=== PATIENT | female | born 2000 | race Hispanic/Latino ===

== ENCOUNTER 2021-07-20 12:04 | Observation (INO) | payer OTHER ==
[2021-07-20] MEDS ORDERED: hydrALAZINE 20 MG/ML VIAL SLOW IVP PRN (13:38)
[2021-07-20] MEDS ORDERED: Lactated Ringer's 1,000 ML IV SCH ×3 (13:45→20:15)
[2021-07-20] MEDS ORDERED: Acetaminophen 500 MG TAB PO SCH (14:00)
[2021-07-20 14:09] VITALS: BMI 31.2
[2021-07-20 14:30] LABS: Amphetamine Not Detected (NotDetected); Barbiturates Screen Not Detected (NotDetected); Benzodiazepine Screen Not Detected (NotDetected); Cocaine Metabolite Screen Not Detected (NotDetected); Methadone Not Detected (NotDetected); Methamphetamine Not Detected (NotDetected); Opiate Screen Not Detected (NotDetected); Oxycodone Screen Not Detected (NotDetected); Phencyclidine (PCP) Not Detected (NotDetected); THC/Cannabinoid Screen Not Detected (NotDetected); Tricyclic Screen Not Detected (NotDetected)
[2021-07-20 14:31] LABS: Bacteria/HPF Rare-Few HPF (None Seen); RBC/HPF 0-3 HPF (0-3); Squamous Epithelial 0-3 HPF (0-3); WBC/HPF 0-3 HPF (0-3)
[2021-07-20] MEDS ORDERED: Acetaminophen 500 MG TAB PO PRN (16:10)
[2021-07-20] MEDS ORDERED: Ondansetron PF 4 MG/2 ML Vial IVP PRN (16:10)
[2021-07-20] MEDS ORDERED: Promethazine HCl 25 MG/ML VIAL IM PRN (16:10)
[2021-07-20 17:09] LABS: HIV (1/2) Antibody/Antigen Non-Reactive (NonReactive); HIV 1/2 INDEX 0.11 S/CO (<1.00); Hep B Surf Ag Non-Reactive S/CO (NonReactive); Syphilis Antibody Nonreactive (Nonreactive); Syphilis Antibody Index 0.03 S/CO (<1.00 Non-Reactive)
[2021-07-20 17:16] LABS: HBSAg Index 0.19 S/CO (0-0.99)
[2021-07-20 17:29] LABS: Bilirubin Neg (Negative); Blood, Urine Negative (Negative); Clarity Clear (Clear); Glucose, Urine (Dipstick) Normal (Negative); Ketone, Urine 150 mg/dL (Negative); Leukocyte Negative (Negative); Nitrite Negative (Negative); Protein, Urine (Dipstick) 15 mg/dl (Neg-Trace); Urobilinogen Normal mg/dL (Less than 2)
[2021-07-20] MEDS: HumaLOG 300 UNITS/3 ML VIAL SC SCH (18:00)
[2021-07-20] MEDS: Acetaminophen 325 MG TAB PO PRN (19:46)
[2021-07-20] MEDS ORDERED: Lantus 1000 UNITS/10 ML VIAL SC SCH (21:00)
[2021-07-20] MEDS: Acyclovir 400 mg Tablet PO SCH (21:33)
[2021-07-20 22:28] LABS: SARS-CoV-2 NAA Rapid Test Not Detected (NotDetected)
[2021-07-20] MEDS ORDERED: Dextrose 50% Abboject 50 ML SYRINGE SLOW IVP PRN (22:42)
[2021-07-20] MEDS ORDERED: Dextrose 5% in Water 1,000 ML IV PRN (22:42)
[2021-07-21 01:47] VITALS: TEMP 100.3
[2021-07-21] MEDS: Acetaminophen 325 MG TAB PO PRN ×2 (01:47→08:24)
[2021-07-21] MEDS: Cepastat Lozenges 1 LOZ PO PRN ×2 (06:47→08:24)
[2021-07-21] MEDS: HumaLOG 300 UNITS/3 ML VIAL SC SCH (08:15)
[2021-07-21] MEDS: Acyclovir 400 mg Tablet PO SCH (08:26)
[2021-07-21] MEDS ORDERED: Prenatal Vitamin 1 TAB PO SCH (09:00)
[2021-07-21] MEDS ORDERED: Lantus 1000 UNITS/10 ML VIAL SC SCH (09:00)
[2021-07-21] MEDS ORDERED: Oseltamivir 75 MG CAP PO SCH (09:00)
[2021-07-21 12:32] LABS: Hemoglobin A1c 5.4 % (4.0-6.0)
[2021-07-24 05:32] LABS: Chlamydia by PCR Not Detected (NotDetected); GC by PCR Not Detected (NotDetected)
== END 2021-07-21 11:02 | disposition home health service (06) ==
LOC: CSHLD/OP 12:04 → INTOOBSV 16:10 → CSHLD 16:10 → UNDOADMIN 07-21 06:36 → UNDODISIN 07-21 11:02
PROVIDERS: ADMIT Obstetrics & Gynecology; ATTEND Obstetrics & Gynecology
DX: O36.8130 Decreased fetal movements, third trimester, not applicable or unspecified (principal); O36.8330 Maternal care for abnormalities of the fetal heart rate or rhythm, third trimester, not applicable or unspecified; O99.513 Diseases of the respiratory system complicating pregnancy, third trimester; J10.1 Influenza due to other identified influenza virus with other respiratory manifestations; O24.013 Pre-existing type 1 diabetes mellitus, in pregnancy, third trimester; O99.891 Other specified diseases and conditions complicating pregnancy; R00.0 Tachycardia, unspecified; O99.283 Endocrine, nutritional and metabolic diseases complicating pregnancy, third trimester; E86.0 Dehydration; O99.820 Streptococcus B carrier state complicating pregnancy; O98.513 Other viral diseases complicating pregnancy, third trimester; B00.9 Herpesviral infection, unspecified; Z3A.32 32 weeks gestation of pregnancy; Z79.899 Other long term (current) drug therapy; Z88.0 Allergy status to penicillin; Z20.822 Contact with and (suspected) exposure to COVID-19
CPT/HCPCS: 0240U; 36415; 36416; 76815; 76819; 80306; 81003; 81015; 83036; 86780; 86850; 86900; 86901; 87086; 87340; 87389; 87480; 87491; 87510; 87591; 87633; 87660; 96374; 99285; G0378; J1815; J2405

== ENCOUNTER 2021-08-08 15:32 | Day surgery (SDC) | payer OTHER ==
[2021-08-08] MEDS ORDERED: hydrALAZINE 20 MG/ML VIAL SLOW IVP PRN (15:54)
[2021-08-08 16:18] VITALS: BMI 31.4
[2021-08-08 16:44] LABS: SARS-CoV-2 NAA Rapid Test Not Detected (NotDetected)
[2021-08-08 16:49] LABS: Creatinine, Urine 40.76 mg/dL (47-110); Protein, Urine Random Quant Less than 10 mg/dL (1-14)
[2021-08-08 17:06] LABS: #Basophils 0.1 10x3/uL (0.0-0.2); #Eosinphils 0.1 10x3/uL (0.0-0.5); #Monocytes 0.6 10x3/uL (0.0-1.1); #Neutrophils 4.3 10x3/uL (1.5-8.4); %Basophils 0.7 % (0.0-2.0); %Eosinophils 1.5 % (0.0-6.0); %Lymphocytes 31.1 % (18.0-47.0); %Monocytes 7.7 % (0.0-10.0); %Neutrophils 58.4 % (40.0-75.0); Hemoglobin 11.8 g/dL (12.0-15.5); Mean Corpuscular HGB CONC 33.6 g/dL (32.0-36.0); Mean Corpuscular Volume 89.3 fl (81.6-98.3); Mean Platelet Volume 11.5 fl (7.4-10.4); Platelet Count 247 10x3/uL (150-450); RBC Distribution Width 12.8 % (11.5-14.5); Red Blood Cell (RBC) Count 3.93 10x6/uL (3.90-5.03); White Blood Cell (WBC) Count 7.3 10x3/uL (3.5-10.5)
[2021-08-08 17:25] LABS: ALT (SGPT) 9 U/L (8-55); AST (SGOT) 17 U/L (5-34); Alkaline Phosphatase 107 U/L (40-100); Anion Gap 12 mmol/L (10-20); BUN (Urea Nitrogen) 7 mg/dL (7.0-18.7); Bilirubin, Total 0.3 mg/dL (0.2-1.2); Calc. Creatinine Clearance 220 mL/min (70-130); Calcium 8.6 mg/dL (7.8-10.44); Carbon Dioxide 21 mmol/L (22-29); Chloride 110 mmol/L (98-107); Globulin 3.1 g/dL (2.4-3.5); Glucose 71 mg/dL (70-105); Potassium 3.5 mmol/L (3.5-5.1); Protein, Total 6.1 g/dL (6.0-8.3); Sodium 139 mmol/L (136-145)
== END 2021-08-08 19:04 | disposition home or self-care (01) ==
LOC: CSHLD/OP 15:32
PROVIDERS: ATTEND Obstetrics & Gynecology
DX: O99.891 Other specified diseases and conditions complicating pregnancy (principal); R03.0 Elevated blood-pressure reading, without diagnosis of hypertension; O24.113 Pre-existing type 2 diabetes mellitus, in pregnancy, third trimester; O98.513 Other viral diseases complicating pregnancy, third trimester; B00.9 Herpesviral infection, unspecified; Z3A.35 35 weeks gestation of pregnancy; Z79.4 Long term (current) use of insulin; Z79.899 Other long term (current) drug therapy; Z88.0 Allergy status to penicillin; Z20.822 Contact with and (suspected) exposure to COVID-19
CPT/HCPCS: 0241U; 36416; 80053; 82570; 84156; 85025

== ENCOUNTER 2021-08-11 21:36 | Inpatient (IN) | payer OTHER ==
[2021-08-11] MEDS ORDERED: Ibuprofen 800 MG TAB PO PRN (22:40)
[2021-08-11] MEDS ORDERED: Carboprost 250 MCG/ML AMP IM PRN (22:40)
[2021-08-11] MEDS ORDERED: Ondansetron PF 4 MG/2 ML Vial IVP PRN ×2 (22:40→23:49)
[2021-08-11] MEDS ORDERED: hydrALAZINE 20 MG/ML VIAL SLOW IVP PRN (22:40)
[2021-08-11] MEDS ORDERED: Lidocaine 1% (PF) 30 ML VIAL SC PRN (22:40)
[2021-08-11] MEDS ORDERED: Acetaminophen 500 MG TAB PO PRN (22:40)
[2021-08-11] MEDS ORDERED: Misoprostol 200 MCG TAB PR PRN (22:40)
[2021-08-11] MEDS ORDERED: Methylergonovine 0.2 MG/ML VIAL IM PRN (22:40)
[2021-08-11] MEDS ORDERED: Diphenoxylate HCl/Atropine Tablet PO PRN (22:40)
[2021-08-11] MEDS ORDERED: Promethazine HCl 25 MG/ML VIAL IM PRN ×2 (22:40→23:49)
[2021-08-11] MEDS ORDERED: Butorphanol Tartrate 1 MG/ML VIAL SLOW IVP PRN (22:40)
[2021-08-11] MEDS ORDERED: Penicillin G Potassium 5 MILL.UNITS in Sodium Chloride 0.9% 100 ML IVPB SCH (22:45)
[2021-08-11] MEDS ORDERED: HumaLOG 300 UNITS/3 ML VIAL SC PRN ×2 (22:57)
[2021-08-11] MEDS ORDERED: Dextrose 50% Abboject 50 ML SYRINGE SLOW IVP PRN (22:57)
[2021-08-11] MEDS ORDERED: Dextrose 5% in Water 1,000 ML IV PRN (22:57)
[2021-08-11] MEDS ORDERED: NS w/ Oxytocin 30 units 500 ML IV SCH (23:00)
[2021-08-11] MEDS ORDERED: Lactated Ringer's 1,000 ML IV SCH (23:00)
[2021-08-11 23:13] LABS: Fetal Membranes Rupture RUPTURE DETECTED (No Rupture)
[2021-08-11] MEDS ORDERED: Fentanyl 2 mcg/Bupivacaine 0.1% Cassette 100 ML EPIDURAL SCH (23:45)
[2021-08-11] MEDS ORDERED: Communication Order-Pharmacy FS SCH (23:45)
[2021-08-11] MEDS ORDERED: diphenhydrAMINE 50 MG/ML VIAL IVP PRN (23:49)
[2021-08-11] MEDS ORDERED: Acetaminophen 325 MG TAB PO PRN (23:49)
[2021-08-11] MEDS ORDERED: Naloxone HCl 0.4 mg/ml Vial IVP PRN ×2 (23:49)
[2021-08-11] MEDS ORDERED: ePHEDrine Sulfate 50 MG/10 ML VIAL SLOW IVP PRN (23:49)
[2021-08-11] MEDS ORDERED: Hydrocerin (Eucerin) Cream 120 gm Jar TOP PRN (23:49)
[2021-08-11] MEDS ORDERED: Lactated Ringer's 500 ML IV PRN (23:49)
[2021-08-11 23:53] VITALS: BMI 32.1
[2021-08-12 00:59] LABS: Hemoglobin 10.6 g/dL (12.0-15.5); Mean Corpuscular HGB CONC 34.2 g/dL (32.0-36.0); Mean Corpuscular Volume 87.8 fl (81.6-98.3); Platelet Count 227 10x3/uL (150-450); RBC Distribution Width 12.7 % (11.5-14.5); Red Blood Cell (RBC) Count 3.53 10x6/uL (3.90-5.03); White Blood Cell (WBC) Count 10.4 10x3/uL (3.5-10.5)
[2021-08-12 01:10] LABS: Hep B Surf Ag Non-Reactive S/CO (NonReactive); Syphilis Antibody Nonreactive (Nonreactive); Syphilis Antibody Index 0.03 S/CO (<1.00 Non-Reactive)
[2021-08-12 01:31] LABS: HBSAg Index 0.15 S/CO (0-0.99)
[2021-08-12] MEDS ORDERED: Fentanyl 2 mcg/Bup 0.1% Cadd 100 ML ONE ×2 (02:45→20:47)
[2021-08-12] MEDS ORDERED: Misoprostol 100 MCG TAB PO SCH (04:30)
[2021-08-12] MEDS ORDERED: Bupivacaine 0.25% HCL 30 ML VIAL ONE (06:00)
[2021-08-12] MEDS ORDERED: Lidocaine 1% (PF) 30 ML VIAL SC PRN (06:12)
[2021-08-12] MEDS ORDERED: NS w/ Oxytocin 30 units 500 ML IV SCH (06:15)
[2021-08-12] MEDS: Penicillin G 2.5 MILL.units 2.5 MILL.UNITS in Premix Bag 1 BAG IVPB SCH ×3 (08:33→16:37)
[2021-08-12 15:57] LABS: SARS-CoV-2 PCR by NAA Not Detected (NotDetected)
[2021-08-12 17:59] LABS: Amphetamine Not Detected (NotDetected); Barbiturates Screen Not Detected (NotDetected); Benzodiazepine Screen Not Detected (NotDetected); Cocaine Metabolite Screen Not Detected (NotDetected); Methadone Not Detected (NotDetected); Methamphetamine Not Detected (NotDetected); Opiate Screen Not Detected (NotDetected); Oxycodone Screen Not Detected (NotDetected); Phencyclidine (PCP) Not Detected (NotDetected); THC/Cannabinoid Screen Not Detected (NotDetected); Tricyclic Screen Not Detected (NotDetected)
[2021-08-13] MEDS ORDERED: hydrALAZINE 20 MG/ML VIAL SLOW IVP PRN (02:18)
[2021-08-13] MEDS ORDERED: Dextrose 50% Abboject 50 ML SYRINGE SLOW IVP PRN (02:18)
[2021-08-13] MEDS ORDERED: Ondansetron PF 4 MG/2 ML Vial IVP PRN (02:18)
[2021-08-13] MEDS ORDERED: HumaLOG 300 UNITS/3 ML VIAL SC PRN ×2 (02:18)
[2021-08-13] MEDS ORDERED: Benzocaine-Menthol 82.5 ML CAN TOP PRN (02:18)
[2021-08-13] MEDS ORDERED: Misoprostol 200 MCG TAB VAG PRN (02:18)
[2021-08-13] MEDS ORDERED: Preparation H Ointment 28 GM TUBE PR PRN (02:18)
[2021-08-13] MEDS ORDERED: Dextrose 5% in Water 1,000 ML IV PRN (02:18)
[2021-08-13] MEDS ORDERED: Milk Of Magnesia 30 ML UDCUP PO PRN (02:18)
[2021-08-13] MEDS ORDERED: Bisacodyl 10 MG SUPP PR PRN (02:18)
[2021-08-13] MEDS ORDERED: Boostrix 0.5 ML (Tdap) VIAL IM ONE (02:18)
[2021-08-13] MEDS ORDERED: diphenhydrAMINE 25 MG CAP PO PRN (02:18)
[2021-08-13] MEDS ORDERED: NS w/ Oxytocin 30 units 500 ML IV SCH (03:00)
[2021-08-13] MEDS: Ibuprofen 800 MG TAB PO SCH ×3 (05:30→23:08)
[2021-08-13] MEDS: Prenatal Vitamin 1 TAB PO SCH ×2 (10:57→11:06)
[2021-08-13] MEDS: Ferrous Sulfate 325 MG TAB PO SCH (10:58)
[2021-08-13] MEDS: Docusate Calcium (SURFAK) 240 MG CAP PO SCH ×2 (10:58→21:35)
[2021-08-14] MEDS: Ferrous Sulfate 325 MG TAB PO SCH ×3 (07:27→08:26)
[2021-08-14 07:28] LABS: SARS-CoV-2 NAA Rapid Test Not Detected (NotDetected)
[2021-08-14 07:46] VITALS: BP 120/67; TEMP 97.8
[2021-08-14] MEDS: Docusate Calcium (SURFAK) 240 MG CAP PO SCH (07:53)
[2021-08-14] MEDS: Prenatal Vitamin 1 TAB PO SCH (07:53)
[2021-08-14] MEDS: Ibuprofen 800 MG TAB PO SCH ×2 (07:53→15:22)
== END 2021-08-14 16:35 | disposition home or self-care (01) | DRG 805 ==
LOC: CSHLD/OP 21:36 → CSHLD 08-12 09:19 → CSHPP 08-13 02:16
PROVIDERS: ADMIT Obstetrics & Gynecology; ATTEND Obstetrics & Gynecology
PROC: 10E0XZZ Delivery of Products of Conception, External Approach (ICD-10-PCS; principal; 2021-08-13)
PROC: 0HQ9XZZ Repair Perineum Skin, External Approach (ICD-10-PCS; 2021-08-13)
DX: O42.113 Preterm premature rupture of membranes, onset of labor more than 24 hours following rupture, third trimester (principal); O24.12 Pre-existing type 2 diabetes mellitus, in childbirth; Z37.0 Single live birth; O60.23X0 Term delivery with preterm labor, third trimester, not applicable or unspecified; O99.824 Streptococcus B carrier state complicating childbirth; O70.0 First degree perineal laceration during delivery; O13.4 Gestational [pregnancy-induced] hypertension without significant proteinuria, complicating childbirth; Z20.822 Contact with and (suspected) exposure to COVID-19; Z3A.36 36 weeks gestation of pregnancy
CPT/HCPCS: 36415; 36416; 51702; 80306; 84112; 85027; 86780; 86850; 86900; 86901; 87340; 99285; J0360; J1200; J1815; J2405; J2540; J2590; J3490; U0002; U0003; U0005